=== PATIENT | female | born 2000 | race Caucasian/White ===

== ENCOUNTER 2023-02-03 19:40 | Emergency (ER) | payer OTHER ==
[~2023-02-03] VITALS: Ht 157.5 cm; Wt 57.3 kg
[2023-02-03] MEDS ORDERED: IBUP-1022 PO (22:18)
[2023-02-03 22:46] VITALS: BP 104/68; TEMP 98.9; O2SAT 98
== END 2023-02-03 22:48 | disposition home or self-care (01) ==
LOC: M ED 19:40 → EDBD 19:40 → M ED 22:48
DX: T14.8XXA Other injury of unspecified body region, initial encounter (principal); V43.62XA Car passenger injured in collision with other type car in traffic accident, initial encounter; Y92.410 Unspecified street and highway as the place of occurrence of the external cause